=== PATIENT | female | born 1960 | race Two or more races ===

== ENCOUNTER 2021-12-13 17:56 | Emergency (ER) | payer MEDICAID, OTHER ==
[~2021-12-13] VITALS: Ht 154.9 cm; Wt 99.8 kg
[2021-12-13] MEDS ORDERED: HYDROcodone-ACET 10/325MG TAB PO ONE (19:30)
[2021-12-13] MEDS ORDERED: SULF400T11 PO (19:36)
[2021-12-13] MEDS ORDERED: HYDR-4798 PO (19:36)
[2021-12-13 20:25] VITALS: BP 114/60
== END 2021-12-13 20:53 | disposition home or self-care (01) ==
LOC: ER 17:56
DX: I83.11 Varicose veins of right lower extremity with inflammation (principal); I87.8 Other specified disorders of veins; S30.810A Abrasion of lower back and pelvis, initial encounter; Z88.1 Allergy status to other antibiotic agents; X58.XXXA Exposure to other specified factors, initial encounter; Y93.89 Activity, other specified; Y92.89 Other specified places as the place of occurrence of the external cause; Y99.8 Other external cause status
CPT/HCPCS: 93005

== ENCOUNTER 2022-11-26 14:51 | Inpatient (IN) | payer MEDICAID ==
[~2022-11-26] VITALS: Ht 157.5 cm; Wt 82.3 kg
[~2022-11-26 14:51] MED LIST: HYDR-4798 PO; SULF400T11 PO
[2022-11-26 15:39] LABS: Eosinophils # (auto) 0.1 10 ^3/uL (0-0.8)
[2022-11-26 15:41] LABS: Neutrophils # (auto) 4.6 10 ^3/uL (1.6-8.6); White Blood Cell 5.9 10^3/uL (4.4-10.8)
[2022-11-26 15:45] LABS: Basophils # (auto) 0 10 ^3/uL (0-0.2); Basophils % (auto) 0.8 % (0.0-2.0); Monocytes # (auto) 0.4 10 ^3/uL (0-1.3)
[2022-11-26 15:47] LABS: Lymphocytes # (auto) 0.9 10 ^3/uL (0.4-5.4); Lymphocytes % (auto) 14.8 % (10.0-50.0); Mean Corpuscular Hemoglobin 22.3 pg (28.0-32.0); Mean Corpuscular Hgb Conc. 31.6 g/dL (32.0-36.0); Mean Corpuscular Volume 70.8 fL (80.0-100.0); Monocytes % (auto) 6.1 % (0.0-12.0); Neutrophils % (auto) 77.3 % (37.0-80.0); Red Blood Cells 3.11 10^6/uL (4.0-5.20); Red Cell Distribution Width 19.4 % (11.8-14.3)
[2022-11-26 16:04] LABS: Albumin 2.7 g/dL (3.4-5.0); BUN/Creatinine Ratio 22.5 (10.0-20.0); Bilirubin, Total 0.2 mg/dL (0.2-1.0); Calcium 8.5 mg/dL (8.5-10.1); Magnesium 2.3 mg/dL (1.6-2.6); Total Protein 6.2 g/dL (6.4-8.2)
[2022-11-26] MEDS ORDERED: ACETAMINOPHEN 325 MG TAB PO PRN (18:30)
[2022-11-26] MEDS ORDERED: FUROSEMIDE 20 MG/2 ML VIAL IV ONE (18:30)
[2022-11-26] MEDS ORDERED: PANTOPRAZOLE 40 MG/10 ML VIAL INJ IV ONE (18:30)
[2022-11-26 18:56] LABS: % Iron Saturation 2.9 % (15-50)
[2022-11-26 19:00] LABS: INR 0.97 (0.9-1.15)
[2022-11-26 19:07] LABS: Folate (Folic Acid) 5.73 ng/mL (5.38-24)
[2022-11-26] MEDS: ASCORBIC ACID 500 MG TAB PO SCH (23:18)
[2022-11-27] VITALS (9 sets, daily range): BP systolic 95–111; BP diastolic 53–66
[2022-11-27 02:36] LABS: Urine Bacteria MANY /hpf (None Seen); Urine Blood 2+ /uL (Negative); Urine Mucus FEW (None Seen); Urine Specific Gravity 1.008 (1.001-1.035); Urine WBC 127 /hpf (0 - 5); Urine WBC Clumps PRESENT /hpf (None Seen)
[2022-11-27] MEDS: FUROSEMIDE 20 MG/2 ML VIAL IV SCH (10:00)
[2022-11-27] MEDS: ASCORBIC ACID 500 MG TAB PO SCH ×2 (10:37→22:02)
[2022-11-27] MEDS: PANTOPRAZOLE 40 MG/10 ML VIAL INJ IV SCH (10:37)
[2022-11-27] MEDS: MULTIPLE VITAMIN TAB PO SCH (10:38)
[2022-11-27] MEDS: ZINC SULFATE 220mg CAP or TAB PO SCH (10:38)
[2022-11-27 11:44] LABS: Eosinophils # (auto) 0.1 10 ^3/uL (0-0.8); Hemoglobin 7.8 g/dL (12.2-16.2); Lymphocytes # (auto) 0.8 10 ^3/uL (0.4-5.4); Monocytes # (auto) 0.3 10 ^3/uL (0-1.3); Red Cell Distribution Width 19.4 % (11.8-14.3); White Blood Cell 4.3 10^3/uL (4.4-10.8)
[2022-11-27 11:45] LABS: Basophils # (auto) 0 10 ^3/uL (0-0.2); Eosinophils % (auto) 2.9 % (0.0-7.0); Hematocrit 24.4 % (36.0-46.0); Lymphocytes % (auto) 17.9 % (10.0-50.0); Mean Corpuscular Hemoglobin 23.1 pg (28.0-32.0); Monocytes % (auto) 6.8 % (0.0-12.0); Neutrophils % (auto) 71.4 % (37.0-80.0); Red Blood Cells 3.38 10^6/uL (4.0-5.20)
[2022-11-27 11:56] LABS: Albumin 2.7 g/dL (3.4-5.0); Calcium 8.4 mg/dL (8.5-10.1); Potassium 3.6 mmol/L (3.5-5.1)
[2022-11-27 11:59] LABS: Bilirubin, Total 0.6 mg/dL (0.2-1.0)
[2022-11-27] MEDS ORDERED: diphenhdrAMINE HCL 25 MG CAP PO PRN (12:00)
[2022-11-27] MEDS: HYDROcodone-ACET 10/325MG TAB PO PRN (20:08)
[2022-11-27] MEDS ORDERED: HEPARIN DRIP/D5W 100UNITS/ML 250 ML IV SCH (22:00)
[2022-11-27] MEDS ORDERED: MORPHINE SULFATE INJ 2 MG/ml SYRG IV PRN ×2 (22:00)
[2022-11-27] MEDS ORDERED: NITROGLYCERIN 0.4 MG SL TAB SL PRN ×2 (22:00)
[2022-11-27] MEDS: TEMAZEPAM 15 MG CAP PO PRN (22:02)
[2022-11-27 22:38] LABS: Basophils # (auto) 0.1 10 ^3/uL (0-0.2); Basophils % (auto) 0.9 % (0.0-2.0); Eosinophils # (auto) 0.2 10 ^3/uL (0-0.8); Eosinophils % (auto) 3.3 % (0.0-7.0); Hematocrit 24.7 % (36.0-46.0); Hemoglobin 7.9 g/dL (12.2-16.2); Lymphocytes % (auto) 18.5 % (10.0-50.0); Mean Corpuscular Hemoglobin 22.8 pg (28.0-32.0); Mean Corpuscular Hgb Conc. 31.8 g/dL (32.0-36.0); Mean Corpuscular Volume 71.6 fL (80.0-100.0); Monocytes # (auto) 0.4 10 ^3/uL (0-1.3); Monocytes % (auto) 7.7 % (0.0-12.0); Neutrophils # (auto) 3.8 10 ^3/uL (1.6-8.6); Neutrophils % (auto) 69.6 % (37.0-80.0); Red Blood Cells 3.46 10^6/uL (4.0-5.20); Red Cell Distribution Width 19.4 % (11.8-14.3); White Blood Cell 5.5 10^3/uL (4.4-10.8)
[2022-11-27 22:53] LABS: INR 0.99 (0.9-1.15); Partial Thromboplastin Time 28.2 sec (24.6-33.4)
[2022-11-27] MEDS: SODIUM CHLOR 0.9% PF (SALINE LOCK) 10ML VIAL/SYR IV SCH (23:00)
[2022-11-28] VITALS (12 sets, daily range): BP systolic 92–116; BP diastolic 53–73
[2022-11-28] MEDS: SODIUM CHLOR 0.9% PF (SALINE LOCK) 10ML VIAL/SYR IV SCH ×3 (06:28→21:08)
[2022-11-28 07:30] LABS: Partial Thromboplastin Time 112.2 sec (24.6-33.4)
[2022-11-28] MEDS ORDERED: HEPARIN DRIP/D5W 100UNITS/ML 250 ML IV SCH ×2 (08:45→17:30)
[2022-11-28] MEDS: FUROSEMIDE 20 MG/2 ML VIAL IV SCH (10:00)
[2022-11-28] MEDS: PANTOPRAZOLE 40 MG/10 ML VIAL INJ IV SCH (12:39)
[2022-11-28] MEDS: MULTIPLE VITAMIN TAB PO SCH (12:39)
[2022-11-28] MEDS: ASCORBIC ACID 500 MG TAB PO SCH ×2 (12:39→21:45)
[2022-11-28] MEDS: ZINC SULFATE 220mg CAP or TAB PO SCH (12:39)
[2022-11-28] MEDS ORDERED: LIDOCAINE 2%HCL (LOCAL ANESTH.) INJ 20ML MDV ONE (14:56)
[2022-11-28] MEDS ORDERED: MIDAZOLAM HCL 2MG/2ML 2ml VIAL (1mg/ml) ONE ×2 (14:56→15:17)
[2022-11-28] MEDS ORDERED: fentaNYL CITRATE 100 MCG/2 ML VL ONE (15:14)
[2022-11-28] MEDS ORDERED: diphenhdrAMINE HCL 50 MG/1 ML VL ONE (15:20)
[2022-11-28 15:32] LABS: INR 0.98 (0.9-1.15); Partial Thromboplastin Time 28.7 sec (24.6-33.4)
[2022-11-28] MEDS ORDERED: HEPARIN SODIUM (PORCINE) 5000 UNITS/ML 1ML VIAL IV ONE ×2 (17:15)
[2022-11-28] MEDS ORDERED: SODIUM CHLORIDE 0.9% 1,000 ML IV ONE (18:30)
[2022-11-28] MEDS: ALBUMIN 25% 50 ML IV SCH ×2 (18:30→20:04)
[2022-11-28] MEDS: HYDROcodone-ACET 10/325MG TAB PO PRN (21:09)
[2022-11-28] MEDS: TEMAZEPAM 15 MG CAP PO PRN (21:46)
[2022-11-29 00:01] LABS: INR 1.04 (0.9-1.15)
[2022-11-29 00:05] LABS: Partial Thromboplastin Time > 139.0 sec (24.6-33.4)
[2022-11-29] MEDS ORDERED: HEPARIN DRIP/D5W 100UNITS/ML 250 ML IV SCH ×2 (01:12→09:15)
[2022-11-29 05:00] VITALS: BP 94/53
[2022-11-29] MEDS: SODIUM CHLOR 0.9% PF (SALINE LOCK) 10ML VIAL/SYR IV SCH ×2 (05:52→14:19)
[2022-11-29 07:16] LABS: Basophils # (auto) 0 10 ^3/uL (0-0.2); Eosinophils # (auto) 0.2 10 ^3/uL (0-0.8); Lymphocytes # (auto) 1.2 10 ^3/uL (0.4-5.4); Mean Corpuscular Hgb Conc. 33.6 g/dL (32.0-36.0); Monocytes # (auto) 0.3 10 ^3/uL (0-1.3); Neutrophils % (auto) 63.5 % (37.0-80.0); Nucleated Red Blood Cells % 0.1 %; Red Cell Distribution Width 19.9 % (11.8-14.3); White Blood Cell 4.8 10^3/uL (4.4-10.8)
[2022-11-29 07:18] LABS: Basophils % (auto) 0.5 % (0.0-2.0); Eosinophils % (auto) 4.2 % (0.0-7.0); Hematocrit 22.7 % (36.0-46.0); Hemoglobin 7.6 g/dL (12.2-16.2); Mean Corpuscular Hemoglobin 23.3 pg (28.0-32.0); Mean Corpuscular Volume 69.4 fL (80.0-100.0); Monocytes % (auto) 6.8 % (0.0-12.0); Neutrophils # (auto) 3.1 10 ^3/uL (1.6-8.6); Red Blood Cells 3.27 10^6/uL (4.0-5.20)
[2022-11-29 07:46] LABS: INR 1.02 (0.9-1.15)
[2022-11-29 07:54] LABS: Partial Thromboplastin Time 111.5 sec (24.6-33.4)
[2022-11-29 09:00] VITALS: BP 105/82
[2022-11-29] MEDS: ZINC SULFATE 220mg CAP or TAB PO SCH (11:36)
[2022-11-29] MEDS: MULTIPLE VITAMIN TAB PO SCH (11:36)
[2022-11-29] MEDS: PANTOPRAZOLE 40 MG/10 ML VIAL INJ IV SCH (11:36)
[2022-11-29] MEDS: FUROSEMIDE 20 MG/2 ML VIAL IV SCH (11:36)
[2022-11-29] MEDS: ASCORBIC ACID 500 MG TAB PO SCH ×2 (11:37→21:02)
[2022-11-29] MEDS ORDERED: IOHEXOL 350 MG/ML 100ML IJ ONE (12:12)
[2022-11-29 13:00] VITALS: BP 104/46
[2022-11-29 17:00] VITALS: BP 114/66
[2022-11-29 18:24] LABS: INR 1.01 (0.9-1.15); Partial Thromboplastin Time 47.6 sec (24.6-33.4)
[2022-11-29] MEDS ORDERED: SODIUM CHLORIDE 0.9% 2,000 ML IV ONE (18:30)
[2022-11-29] MEDS: HEPARIN DRIP/D5W 100UNITS/ML 250 ML IV SCH (19:30)
[2022-11-29 20:00] VITALS: BP 105/82
[2022-11-29] MEDS: TEMAZEPAM 15 MG CAP PO PRN (21:04)
[2022-11-29 21:56] VITALS: BP 99/58
[2022-11-30] MEDS: HEPARIN DRIP/D5W 100UNITS/ML 250 ML IV SCH (01:27)
[2022-11-30 02:49] LABS: INR 1.05 (0.9-1.15); Partial Thromboplastin Time 68.3 sec (24.6-33.4)
[2022-11-30] MEDS: SODIUM CHLOR 0.9% PF (SALINE LOCK) 10ML VIAL/SYR IV SCH ×4 (03:25→21:36)
[2022-11-30 04:43] VITALS: BP 90/55
[2022-11-30 09:00] VITALS: BP 92/54
[2022-11-30 09:22] LABS: INR 1.02 (0.9-1.15)
[2022-11-30] MEDS: PANTOPRAZOLE 40 MG/10 ML VIAL INJ IV SCH (10:00)
[2022-11-30] MEDS: FUROSEMIDE 20 MG/2 ML VIAL IV SCH (10:00)
[2022-11-30] MEDS: MULTIPLE VITAMIN TAB PO SCH (10:00)
[2022-11-30] MEDS: ASCORBIC ACID 500 MG TAB PO SCH ×2 (10:00→21:36)
[2022-11-30] MEDS: ZINC SULFATE 220mg CAP or TAB PO SCH (10:00)
[2022-11-30 10:43] LABS: Basophils # (auto) 0 10 ^3/uL (0-0.2); Eosinophils # (auto) 0.2 10 ^3/uL (0-0.8); Neutrophils # (auto) 2.9 10 ^3/uL (1.6-8.6); White Blood Cell 4.7 10^3/uL (4.4-10.8)
[2022-11-30 10:45] LABS: Basophils % (auto) 0.9 % (0.0-2.0); Eosinophils % (auto) 4.5 % (0.0-7.0); Hemoglobin 7.5 g/dL (12.2-16.2); Lymphocytes # (auto) 1.2 10 ^3/uL (0.4-5.4); Lymphocytes % (auto) 26.4 % (10.0-50.0); Mean Corpuscular Hemoglobin 22.8 pg (28.0-32.0); Mean Corpuscular Hgb Conc. 31.3 g/dL (32.0-36.0); Mean Corpuscular Volume 72.6 fL (80.0-100.0); Monocytes # (auto) 0.3 10 ^3/uL (0-1.3); Monocytes % (auto) 7.1 % (0.0-12.0); Neutrophils % (auto) 61.1 % (37.0-80.0); Nucleated Red Blood Cells % 0.2 %; Red Cell Distribution Width 19.9 % (11.8-14.3)
[2022-11-30] MEDS: HYDROcodone-ACET 10/325MG TAB PO PRN (12:11)
[2022-11-30 13:00] VITALS: BP 110/58
[2022-11-30] MEDS ORDERED: PROPOFOL 10 MG/ML 20 ML IV ONE (14:10)
[2022-11-30] MEDS ORDERED: LIDOCAINE 2% (LOCAL ANESTH.) PF 5ml SDV ONE (14:10)
[2022-11-30] MEDS ORDERED: HEPARIN DRIP/D5W 100UNITS/ML 250 ML IV SCH (16:30)
[2022-11-30] MEDS: diphenhdrAMINE HCL 25 MG CAP PO PRN ×2 (16:41→23:49)
[2022-11-30 17:00] VITALS: BP 106/69
[2022-11-30] MEDS: TEMAZEPAM 15 MG CAP PO PRN (21:37)
[2022-11-30 22:00] VITALS: BP 103/56
[2022-11-30 23:35] LABS: INR 1.02 (0.9-1.15); Partial Thromboplastin Time 50.9 sec (24.6-33.4)
[2022-12-01 05:00] VITALS: BP 95/53
[2022-12-01] MEDS: SODIUM CHLOR 0.9% PF (SALINE LOCK) 10ML VIAL/SYR IV SCH ×3 (06:48→21:31)
[2022-12-01 08:48] LABS: INR 1.04 (0.9-1.15); Partial Thromboplastin Time 43.7 sec (24.6-33.4)
[2022-12-01 09:00] VITALS: BP 99/56
[2022-12-01] MEDS ORDERED: HEPARIN DRIP/D5W 100UNITS/ML 250 ML IV SCH (10:00)
[2022-12-01] MEDS: ZINC SULFATE 220mg CAP or TAB PO SCH (11:04)
[2022-12-01] MEDS: POLYETHYLENE GLYCOL 17 GM PWDR PO SCH (11:04)
[2022-12-01] MEDS: PANTOPRAZOLE 40 MG/10 ML VIAL INJ IV SCH (11:04)
[2022-12-01] MEDS: ASCORBIC ACID 500 MG TAB PO SCH ×2 (11:05→21:31)
[2022-12-01] MEDS: MULTIPLE VITAMIN TAB PO SCH (11:05)
[2022-12-01] MEDS: FUROSEMIDE 20 MG/2 ML VIAL IV SCH (11:07)
[2022-12-01 13:00] VITALS: BP 92/60
[2022-12-01] MEDS: HYDROcodone-ACET 10/325MG TAB PO PRN (14:05)
[2022-12-01 16:06] LABS: Eosinophils # (auto) 0.1 10 ^3/uL (0-0.8); Monocytes # (auto) 0.3 10 ^3/uL (0-1.3); Red Cell Distribution Width 19.8 % (11.8-14.3); White Blood Cell 7.3 10^3/uL (4.4-10.8)
[2022-12-01 16:08] LABS: Basophils # (auto) 0 10 ^3/uL (0-0.2); Basophils % (auto) 0.6 % (0.0-2.0); Eosinophils % (auto) 1.7 % (0.0-7.0); Hematocrit 25.6 % (36.0-46.0); Hemoglobin 8.3 g/dL (12.2-16.2); Lymphocytes # (auto) 1.1 10 ^3/uL (0.4-5.4); Mean Corpuscular Hemoglobin 22.8 pg (28.0-32.0); Mean Corpuscular Hgb Conc. 32.6 g/dL (32.0-36.0); Mean Corpuscular Volume 69.8 fL (80.0-100.0); Monocytes % (auto) 3.7 % (0.0-12.0); Neutrophils # (auto) 5.7 10 ^3/uL (1.6-8.6); Red Blood Cells 3.67 10^6/uL (4.0-5.20)
[2022-12-01 16:53] LABS: INR 1.03 (0.9-1.15); Partial Thromboplastin Time 61.7 sec (24.6-33.4)
[2022-12-01 17:00] VITALS: BP 97/60
[2022-12-01] MEDS: diphenhdrAMINE HCL 25 MG CAP PO PRN (18:34)
[2022-12-01] MEDS: TEMAZEPAM 15 MG CAP PO PRN (21:31)
[2022-12-01 22:00] VITALS: BP 100/66
[2022-12-01 23:42] LABS: INR 1.02 (0.9-1.15)
[2022-12-01 23:44] LABS: Partial Thromboplastin Time 93.4 sec (24.6-33.4)
[2022-12-02] VITALS (7 sets, daily range): BP systolic 93–105; BP diastolic 50–65
[2022-12-02] MEDS ORDERED: HEPARIN DRIP/D5W 100UNITS/ML 250 ML IV SCH (01:00)
[2022-12-02] MEDS: SODIUM CHLOR 0.9% PF (SALINE LOCK) 10ML VIAL/SYR IV SCH ×3 (05:15→22:01)
[2022-12-02] MEDS: diphenhdrAMINE HCL 25 MG CAP PO PRN ×2 (05:38→21:21)
[2022-12-02] MEDS: FUROSEMIDE 20 MG/2 ML VIAL IV SCH (10:00)
[2022-12-02] MEDS: POLYETHYLENE GLYCOL 17 GM PWDR PO SCH (10:00)
[2022-12-02 10:36] LABS: INR 1.02 (0.9-1.15); Partial Thromboplastin Time 56.5 sec (24.6-33.4)
[2022-12-02] MEDS: MULTIPLE VITAMIN TAB PO SCH (13:30)
[2022-12-02] MEDS: PANTOPRAZOLE 40 MG/10 ML VIAL INJ IV SCH (13:30)
[2022-12-02] MEDS: ZINC SULFATE 220mg CAP or TAB PO SCH (13:30)
[2022-12-02] MEDS: ASCORBIC ACID 500 MG TAB PO SCH ×2 (13:30→21:56)
[2022-12-02] MEDS: HYDROcodone-ACET 10/325MG TAB PO PRN ×2 (13:45→22:59)
[2022-12-02 17:15] LABS: Basophils # (auto) 0 10 ^3/uL (0-0.2); Eosinophils # (auto) 0.1 10 ^3/uL (0-0.8); Hemoglobin 7.6 g/dL (12.2-16.2); Mean Corpuscular Hemoglobin 22.5 pg (28.0-32.0); Monocytes # (auto) 0.3 10 ^3/uL (0-1.3)
[2022-12-02 17:16] LABS: Basophils % (auto) 0.9 % (0.0-2.0); Eosinophils % (auto) 2.6 % (0.0-7.0); Hematocrit 23.9 % (36.0-46.0); Lymphocytes # (auto) 0.9 10 ^3/uL (0.4-5.4); Lymphocytes % (auto) 17.4 % (10.0-50.0); Mean Corpuscular Hgb Conc. 31.8 g/dL (32.0-36.0); Mean Corpuscular Volume 70.9 fL (80.0-100.0); Monocytes % (auto) 5.5 % (0.0-12.0); Neutrophils % (auto) 73.6 % (37.0-80.0); Red Blood Cells 3.37 10^6/uL (4.0-5.20); Red Cell Distribution Width 19.5 % (11.8-14.3); White Blood Cell 5.4 10^3/uL (4.4-10.8)
[2022-12-02 17:32] LABS: INR 1.01 (0.9-1.15); Partial Thromboplastin Time 27.5 sec (24.6-33.4)
[2022-12-02] MEDS: APIXABAN 5 MG TAB PO SCH (21:55)
[2022-12-02] MEDS: TEMAZEPAM 15 MG CAP PO PRN (21:56)
[2022-12-03 05:00] VITALS: BP 105/60
[2022-12-03] MEDS: SODIUM CHLOR 0.9% PF (SALINE LOCK) 10ML VIAL/SYR IV SCH ×2 (06:36→14:00)
[2022-12-03 08:00] VITALS: BP 99/50
[2022-12-03 09:00] VITALS: BP 99/60
[2022-12-03] MEDS: POLYETHYLENE GLYCOL 17 GM PWDR PO SCH (10:00)
[2022-12-03] MEDS: MULTIPLE VITAMIN TAB PO SCH (10:00)
[2022-12-03] MEDS: ZINC SULFATE 220mg CAP or TAB PO SCH (10:00)
[2022-12-03] MEDS: FUROSEMIDE 20 MG/2 ML VIAL IV SCH (10:00)
[2022-12-03] MEDS: ASCORBIC ACID 500 MG TAB PO SCH (10:00)
[2022-12-03] MEDS: PANTOPRAZOLE 40 MG/10 ML VIAL INJ IV SCH (10:21)
[2022-12-03] MEDS: APIXABAN 5 MG TAB PO SCH (10:22)
[2022-12-03] MEDS ORDERED: APIX5TAB PO (10:57)
[2022-12-03] MEDS ORDERED: ASCO500T11 PO (10:57)
[2022-12-03] MEDS ORDERED: PANT40TA2 PO (11:38)
[2022-12-03 13:00] VITALS: BP 96/60
[2022-12-03] MEDS: HYDROcodone-ACET 10/325MG TAB PO PRN (14:42)
[2022-12-03 16:06] VITALS: BP 99/50
[2022-12-03 17:00] VITALS: BP 103/63
[2022-12-04] MEDS ORDERED: FERR-7 PO (06:41)
[2022-12-04] MEDS ORDERED: LEVO500T31 PO (06:41)
== END 2022-12-03 19:05 | disposition home health service (06) | DRG 197 ==
LOC: EDBD 14:51 → ER 14:51 → OVERFLOW 18:27 → WEST WING 11-27 06:05 → TELE-WESTW 11-28 02:16
PROVIDERS: ADMIT Nurse Practitioner Family; ATTEND Internal Medicine
PROC: 30233N1 Transfusion of Nonautologous Red Blood Cells into Peripheral Vein, Percutaneous Approach (ICD-10-PCS; 2022-11-27)
PROC: 06H03DZ Insertion of Intraluminal Device into Inferior Vena Cava, Percutaneous Approach (ICD-10-PCS; 2022-11-29)
PROC: B5191ZA Fluoroscopy of Inferior Vena Cava using Low Osmolar Contrast, Guidance (ICD-10-PCS; 2022-11-29)
PROC: B549ZZA Ultrasonography of Inferior Vena Cava, Guidance (ICD-10-PCS; 2022-11-29)
PROC: 0DB78ZX Excision of Stomach, Pylorus, Via Natural or Artificial Opening Endoscopic, Diagnostic (ICD-10-PCS; 2022-11-30)
PROC: 0DB98ZX Excision of Duodenum, Via Natural or Artificial Opening Endoscopic, Diagnostic (ICD-10-PCS; principal; 2022-11-30 14:39)
DX: I82.403 Acute embolism and thrombosis of unspecified deep veins of lower extremity, bilateral (principal); L89.109 Pressure ulcer of unspecified part of back, unspecified stage; E44.0 Moderate protein-calorie malnutrition; D63.8 Anemia in other chronic diseases classified elsewhere; K29.70 Gastritis, unspecified, without bleeding; K44.9 Diaphragmatic hernia without obstruction or gangrene; K20.90 Esophagitis, unspecified without bleeding; L89.90 Pressure ulcer of unspecified site, unspecified stage; I87.2 Venous insufficiency (chronic) (peripheral); E66.01 Morbid (severe) obesity due to excess calories; I87.8 Other specified disorders of veins; D50.9 Iron deficiency anemia, unspecified; I25.10 Atherosclerotic heart disease of native coronary artery without angina pectoris; Z20.822 Contact with and (suspected) exposure to COVID-19; B95.62 Methicillin resistant Staphylococcus aureus infection as the cause of diseases classified elsewhere; B96.89 Other specified bacterial agents as the cause of diseases classified elsewhere; B96.20 Unspecified Escherichia coli [E. coli] as the cause of diseases classified elsewhere; M13.88 Other specified arthritis, other site; Z80.9 Family history of malignant neoplasm, unspecified; Z74.01 Bed confinement status; Z86.16 Personal history of COVID-19; Z88.1 Allergy status to other antibiotic agents; Z90.710 Acquired absence of both cervix and uterus; Z95.828 Presence of other vascular implants and grafts; Z68.33 Body mass index [BMI] 33.0-33.9, adult; Z88.5 Allergy status to narcotic agent; Z79.899 Other long term (current) drug therapy
CPT/HCPCS: 36415; 37191; 37619; 43239; 71045; 71275; 80053; 81001; 82607; 82728; 82746; 83540; 83550; 83735; 83880; 85025; 85610; 85730; 86850; 86900; 86901; 86920; 87077; 87186; 87205; 87426; 93005; 93306; 93970; 94640; 97110; 97163; 97530; 99152; 99153; C1894; C9113; G0378; J2001; J2250; J2704

== ENCOUNTER 2023-03-01 15:28 | Inpatient (IN) | payer MEDICAID ==
[~2023-03-01] VITALS: Ht 157.5 cm; Wt 81.6 kg
[~2023-03-01 15:28] MED LIST changes: +APIX5TAB PO; +ASCO500T11 PO; +FERR-7 PO; +LEVO500T31 PO; +PANT40TA2 PO; -SULF400T11 PO
[2023-03-01 17:52] LABS: Eosinophils # (auto) 0.1 10 ^3/uL (0-0.8); Hemoglobin 7.4 g/dL (12.2-16.2); Monocytes # (auto) 0.3 10 ^3/uL (0-1.3)
[2023-03-01 17:55] LABS: Basophils # (auto) 0 10 ^3/uL (0-0.2); Basophils % (auto) 0.7 % (0.0-2.0); Eosinophils % (auto) 1.5 % (0.0-7.0); Hematocrit 23.8 % (36.0-46.0); Lymphocytes # (auto) 0.9 10 ^3/uL (0.4-5.4); Lymphocytes % (auto) 17.2 % (10.0-50.0); Mean Corpuscular Hemoglobin 21.1 pg (28.0-32.0); Mean Corpuscular Hgb Conc. 31.2 g/dL (32.0-36.0); Mean Corpuscular Volume 67.6 fL (80.0-100.0); Monocytes % (auto) 5.8 % (0.0-12.0); Neutrophils # (auto) 3.7 10 ^3/uL (1.6-8.6); Neutrophils % (auto) 74.8 % (37.0-80.0); Red Blood Cells 3.52 10^6/uL (4.0-5.20); Red Cell Distribution Width 19.1 % (11.8-14.3)
[2023-03-01 18:00] LABS: Potassium 4.2 mmol/L (3.5-5.1)
[2023-03-01 18:07] LABS: Albumin 2.9 g/dL (3.4-5.0); BUN/Creatinine Ratio 36.4 (10.0-20.0); Bilirubin, Total 0.2 mg/dL (0.2-1.0); Calcium 8.2 mg/dL (8.5-10.1); Total Protein 6.2 g/dL (6.4-8.2)
[2023-03-01 18:11] LABS: INR 0.99 (0.9-1.15); Partial Thromboplastin Time 28.3 SEC (24.5-34.5)
[2023-03-01] MEDS ORDERED: ENOXAPARIN SOD 120 MG/0.8 ML SYRINGE SC ONE (20:15)
[2023-03-01] MEDS ORDERED: IOHEXOL 350 MG/ML 100ML IJ ONE (20:16)
[2023-03-01] MEDS ORDERED: ONDANSETRON HCL 4 MG/2 ML VIAL IV ONE (20:35)
[2023-03-01] MEDS ORDERED: ACETAMINOPHEN 325 MG TAB PO PRN (21:45)
[2023-03-01] MEDS ORDERED: DOCUSATE SOD 100 MG CAP PO PRN (21:45)
[2023-03-01] MEDS ORDERED: ALBUMIN 25% 100 ML IV ONE (21:45)
[2023-03-01] MEDS ORDERED: ONDANSETRON HCL 4 MG/2 ML VIAL IV PRN (21:45)
[2023-03-01] MEDS ORDERED: HYDROmorphone HCL 2 MG/ML VL/or syr IV PRN (21:45)
[2023-03-01] MEDS: FAMOTIDINE (10MG/ML) 2ML VL IV SCH (23:36)
[2023-03-01] MEDS: SODIUM CHLOR 0.9% PF (SALINE LOCK) 10ML VIAL/SYR IV SCH (23:37)
[2023-03-02] MEDS ORDERED: NITROGLYCERIN 0.4 MG SL TAB SL PRN
[2023-03-02] MEDS ORDERED: MORPHINE SULFATE INJ 2 MG/ml SYRG IV PRN
[2023-03-02] MEDS ORDERED: SODIUM CHLORIDE 0.9% 500 ML IV ONE (05:30)
[2023-03-02] MEDS ORDERED: HYDROcodone-ACET 5/325MG TAB PO PRN (05:30)
[2023-03-02] MEDS: SODIUM CHLOR 0.9% PF (SALINE LOCK) 10ML VIAL/SYR IV SCH ×3 (05:32→21:25)
[2023-03-02 06:07] LABS: Basophils # (auto) 0 10 ^3/uL (0-0.2); Basophils % (auto) 0.7 % (0.0-2.0); Eosinophils # (auto) 0 10 ^3/uL (0-0.8); Eosinophils % (auto) 0.8 % (0.0-7.0); Hematocrit 23.6 % (36.0-46.0); Lymphocytes # (auto) 0.8 10 ^3/uL (0.4-5.4); Lymphocytes % (auto) 16.7 % (10.0-50.0); Mean Corpuscular Hemoglobin 20.7 pg (28.0-32.0); Mean Corpuscular Hgb Conc. 28.8 g/dL (32.0-36.0); Mean Corpuscular Volume 72.1 fL (80.0-100.0); Monocytes # (auto) 0.3 10 ^3/uL (0-1.3); Monocytes % (auto) 6.2 % (0.0-12.0); Neutrophils # (auto) 3.4 10 ^3/uL (1.6-8.6); Neutrophils % (auto) 75.6 % (37.0-80.0); Red Blood Cells 3.27 10^6/uL (4.0-5.20); Red Cell Distribution Width 18.9 % (11.8-14.3); White Blood Cell 4.5 10^3/uL (4.4-10.8)
[2023-03-02 06:11] LABS: Potassium 4.4 mmol/L (3.5-5.1)
[2023-03-02 06:21] LABS: BUN/Creatinine Ratio 26.9 (10.0-20.0); Bilirubin, Total 0.3 mg/dL (0.2-1.0); Calcium 7.9 mg/dL (8.5-10.1); Total Protein 5.7 g/dL (6.4-8.2)
[2023-03-02 06:23] LABS: Hemoglobin 6.8 g/dL (12.2-16.2)
[2023-03-02] MEDS ORDERED: HYDROmorphone HCL 2 MG/ML VL/or syr IV PRN (06:30)
[2023-03-02 09:16] VITALS: BP 94/56
[2023-03-02 09:33] VITALS: BP 95/52
[2023-03-02 11:17] VITALS: BP 95/55
[2023-03-02] MEDS: FAMOTIDINE (10MG/ML) 2ML VL IV SCH ×2 (11:19→21:20)
[2023-03-02] MEDS: HYDROcodone-ACET 5/325MG TAB PO PRN (15:35)
[2023-03-02 17:12] VITALS: BP 111/61
[2023-03-02] MEDS: ENOXAPARIN SOD 120 MG/0.8 ML SYRINGE SC SCH (21:25)
[2023-03-02 22:00] VITALS: BP 88/53
[2023-03-03 05:00] VITALS: BP 98/53
[2023-03-03 05:51] LABS: Albumin 2.7 g/dL (3.4-5.0); BUN/Creatinine Ratio 23.7 (10.0-20.0); Calcium 8.3 mg/dL (8.5-10.1); Potassium 3.8 mmol/L (3.5-5.1)
[2023-03-03 05:54] LABS: Bilirubin, Total 0.3 mg/dL (0.2-1.0)
[2023-03-03 06:27] LABS: Basophils # (auto) 0 10 ^3/uL (0-0.2); Eosinophils # (auto) 0.1 10 ^3/uL (0-0.8); Hemoglobin 7.9 g/dL (12.2-16.2); Lymphocytes # (auto) 1.1 10 ^3/uL (0.4-5.4); Lymphocytes % (auto) 29.9 % (10.0-50.0); Monocytes # (auto) 0.3 10 ^3/uL (0-1.3); Neutrophils # (auto) 2.2 10 ^3/uL (1.6-8.6); White Blood Cell 3.8 10^3/uL (4.4-10.8)
[2023-03-03 06:29] LABS: Basophils % (auto) 0.6 % (0.0-2.0); Eosinophils % (auto) 3.1 % (0.0-7.0); Hematocrit 24.6 % (36.0-46.0); Mean Corpuscular Hgb Conc. 31.9 g/dL (32.0-36.0); Monocytes % (auto) 7.9 % (0.0-12.0); Neutrophils % (auto) 58.5 % (37.0-80.0); Red Blood Cells 3.57 10^6/uL (4.0-5.20)
[2023-03-03 06:32] LABS: Red Cell Distribution Width 20.4 % (11.8-14.3)
[2023-03-03] MEDS: SODIUM CHLOR 0.9% PF (SALINE LOCK) 10ML VIAL/SYR IV SCH ×3 (06:57→22:20)
[2023-03-03 09:00] VITALS: BP 104/65
[2023-03-03] MEDS: FAMOTIDINE (10MG/ML) 2ML VL IV SCH ×2 (09:07→22:20)
[2023-03-03 13:00] VITALS: BP 121/66
[2023-03-03] MEDS: HYDROcodone-ACET 5/325MG TAB PO PRN (16:34)
[2023-03-03 17:00] VITALS: BP 104/65
[2023-03-03 20:00] VITALS: BP 108/58
[2023-03-03] MEDS: ENOXAPARIN SOD 120 MG/0.8 ML SYRINGE SC SCH (20:56)
[2023-03-03 22:00] VITALS: BP 108/58
[2023-03-04 05:00] VITALS: BP 90/49
[2023-03-04 06:35] LABS: Basophils # (auto) 0 10 ^3/uL (0-0.2); Eosinophils # (auto) 0.1 10 ^3/uL (0-0.8); Eosinophils % (auto) 2.4 % (0.0-7.0); Lymphocytes # (auto) 1.2 10 ^3/uL (0.4-5.4); Monocytes # (auto) 0.4 10 ^3/uL (0-1.3)
[2023-03-04 06:38] LABS: Hematocrit 25.6 % (36.0-46.0); Lymphocytes % (auto) 25.7 % (10.0-50.0); Mean Corpuscular Hemoglobin 21.7 pg (28.0-32.0); Mean Corpuscular Hgb Conc. 31.2 g/dL (32.0-36.0); Mean Corpuscular Volume 69.6 fL (80.0-100.0); Monocytes % (auto) 7.9 % (0.0-12.0); Neutrophils # (auto) 2.8 10 ^3/uL (1.6-8.6); Nucleated Red Blood Cells % 0.1 %; Red Blood Cells 3.69 10^6/uL (4.0-5.20); White Blood Cell 4.5 10^3/uL (4.4-10.8)
[2023-03-04 06:59] LABS: Red Cell Distribution Width 20.6 % (11.8-14.3)
[2023-03-04 07:10] LABS: Thyroid Stimulating Hormone 3.04 uIU/mL (0.358-3.74)
[2023-03-04] MEDS: SODIUM CHLOR 0.9% PF (SALINE LOCK) 10ML VIAL/SYR IV SCH ×3 (07:13→21:32)
[2023-03-04 09:00] VITALS: BP 104/53
[2023-03-04] MEDS: FAMOTIDINE (10MG/ML) 2ML VL IV SCH ×2 (10:00→21:32)
[2023-03-04] MEDS: HYDROcodone-ACET 5/325MG TAB PO PRN ×2 (12:55→21:32)
[2023-03-04 13:00] VITALS: BP 97/56
[2023-03-04 16:39] VITALS: BP 90/43
[2023-03-04] MEDS: ENOXAPARIN SOD 120 MG/0.8 ML SYRINGE SC SCH (21:32)
[2023-03-04 22:00] VITALS: BP 113/65
[2023-03-04 22:05] VITALS: BP 113/65
[2023-03-05 05:05] VITALS: BP 98/54
[2023-03-05] MEDS: SODIUM CHLOR 0.9% PF (SALINE LOCK) 10ML VIAL/SYR IV SCH ×2 (06:52→13:23)
[2023-03-05 09:00] VITALS: BP 92/49
[2023-03-05] MEDS: FAMOTIDINE (10MG/ML) 2ML VL IV SCH ×2 (09:14→21:34)
[2023-03-05] MEDS ORDERED: APIXABAN 5 MG TAB PO SCH (10:00)
[2023-03-05 13:00] VITALS: BP 97/61
[2023-03-05] MEDS: APIXABAN 2.5 MG TAB PO SCH ×2 (13:23→21:35)
[2023-03-05] MEDS: HYDROcodone-ACET 5/325MG TAB PO PRN ×2 (13:23→21:34)
[2023-03-05 17:00] VITALS: BP 94/54
[2023-03-05 22:00] VITALS: BP 92/52
[2023-03-06] MEDS ORDERED: SODIUM FERR GLUC 62.5MG/5ML 125 MG in SODIUM CHL 0.9% 100 ML IV ONE (00:30)
[2023-03-06] MEDS: SODIUM CHLOR 0.9% PF (SALINE LOCK) 10ML VIAL/SYR IV SCH ×4 (04:03→21:17)
[2023-03-06 05:00] VITALS: BP 86/56
[2023-03-06] MEDS: HYDROcodone-ACET 5/325MG TAB PO PRN ×3 (07:08→21:17)
[2023-03-06 08:30] VITALS: BP 95/45
[2023-03-06] MEDS: PANTOPRAZOLE 40 MG TAB PO SCH (14:00)
[2023-03-06] MEDS: APIXABAN 5 MG TAB PO SCH ×2 (14:00→21:17)
[2023-03-06 15:32] LABS: Albumin 2.8 g/dL (3.4-5.0); Calcium 8.4 mg/dL (8.5-10.1); Potassium 3.8 mmol/L (3.5-5.1)
[2023-03-06 15:35] LABS: BUN/Creatinine Ratio 18.1 (10.0-20.0)
[2023-03-06 15:37] LABS: Bilirubin, Total 0.2 mg/dL (0.2-1.0); Total Protein 6.4 g/dL (6.4-8.2)
[2023-03-06 16:41] LABS: Basophils # (auto) 0 10 ^3/uL (0-0.2); Basophils % (auto) 0.6 % (0.0-2.0); Eosinophils # (auto) 0.1 10 ^3/uL (0-0.8); Eosinophils % (auto) 1.4 % (0.0-7.0); Hematocrit 27.5 % (36.0-46.0); Hemoglobin 8.6 g/dL (12.2-16.2); Lymphocytes # (auto) 0.8 10 ^3/uL (0.4-5.4); Lymphocytes % (auto) 18.1 % (10.0-50.0); Mean Corpuscular Hemoglobin 21.9 pg (28.0-32.0); Mean Corpuscular Hgb Conc. 31.2 g/dL (32.0-36.0); Monocytes # (auto) 0.3 10 ^3/uL (0-1.3); Monocytes % (auto) 6.3 % (0.0-12.0); Neutrophils # (auto) 3.4 10 ^3/uL (1.6-8.6); Neutrophils % (auto) 73.6 % (37.0-80.0); Red Blood Cells 3.92 10^6/uL (4.0-5.20); White Blood Cell 4.6 10^3/uL (4.4-10.8)
[2023-03-06 16:42] LABS: Red Cell Distribution Width 20.7 % (11.8-14.3)
[2023-03-06 22:00] VITALS: BP 101/57
[2023-03-07 05:00] VITALS: BP 103/62
[2023-03-07] MEDS: SODIUM CHLOR 0.9% PF (SALINE LOCK) 10ML VIAL/SYR IV SCH ×3 (06:48→21:04)
[2023-03-07] MEDS: PANTOPRAZOLE 40 MG TAB PO SCH (08:23)
[2023-03-07] MEDS: APIXABAN 5 MG TAB PO SCH ×2 (08:24→21:04)
[2023-03-07 09:00] VITALS: BP 101/62
[2023-03-07 12:50] VITALS: BP 104/55
[2023-03-07] MEDS: HYDROcodone-ACET 5/325MG TAB PO PRN ×2 (14:31→20:45)
[2023-03-07 17:02] VITALS: BP 108/55
[2023-03-07 22:00] VITALS: BP 90/51
[2023-03-07 23:36] VITALS: BP 98/47
[2023-03-08 05:00] VITALS: BP 86/59
[2023-03-08] MEDS: SODIUM CHLOR 0.9% PF (SALINE LOCK) 10ML VIAL/SYR IV SCH (05:33)
[2023-03-08 06:52] VITALS: BP 98/61
[2023-03-08 09:00] VITALS: BP 98/62
[2023-03-08] MEDS: PANTOPRAZOLE 40 MG TAB PO SCH (10:27)
[2023-03-08] MEDS: APIXABAN 5 MG TAB PO SCH (10:27)
== END 2023-03-08 13:30 | DRG 197 ==
LOC: EDBD 15:28 → ER 15:28 → TELE 23:56 → TELE-CENTR 03-02 14:37
PROVIDERS: ADMIT Nurse Practitioner Family; ATTEND Family Medicine
PROC: 30233N1 Transfusion of Nonautologous Red Blood Cells into Peripheral Vein, Percutaneous Approach (ICD-10-PCS; principal; 2023-03-02)
DX: I82.432 Acute embolism and thrombosis of left popliteal vein (principal); E43 Unspecified severe protein-calorie malnutrition; L89.152 Pressure ulcer of sacral region, stage 2; D63.8 Anemia in other chronic diseases classified elsewhere; E88.09 Other disorders of plasma-protein metabolism, not elsewhere classified; I82.442 Acute embolism and thrombosis of left tibial vein; K29.70 Gastritis, unspecified, without bleeding; M17.0 Bilateral primary osteoarthritis of knee; I25.10 Atherosclerotic heart disease of native coronary artery without angina pectoris; E66.01 Morbid (severe) obesity due to excess calories; I87.2 Venous insufficiency (chronic) (peripheral); Z20.822 Contact with and (suspected) exposure to COVID-19; I82.503 Chronic embolism and thrombosis of unspecified deep veins of lower extremity, bilateral; Z96.653 Presence of artificial knee joint, bilateral; Z90.710 Acquired absence of both cervix and uterus; Z88.1 Allergy status to other antibiotic agents; Z74.01 Bed confinement status; Z88.5 Allergy status to narcotic agent; Z88.8 Allergy status to other drugs, medicaments and biological substances; Z80.51 Family history of malignant neoplasm of kidney; Z95.828 Presence of other vascular implants and grafts; Z90.49 Acquired absence of other specified parts of digestive tract; Z68.31 Body mass index [BMI] 31.0-31.9, adult
CPT/HCPCS: 36415; 71045; 71275; 73700; 74176; 80053; 82270; 82378; 83615; 84155; 84165; 84436; 84443; 84484; 85025; 85045; 85379; 85610; 85730; 86850; 86900; 86901; 86920; 87426; 93005; 93970; 96361; 96365; 96372; 96375; 97110; 97116; 97163; 97530; G0378; J2405; J3490; P9047

== ENCOUNTER 2023-07-16 11:06 | Inpatient (IN) | payer MEDICAID ==
[~2023-07-16] VITALS: Ht 157.5 cm; Wt 80.7 kg
[2023-07-16] MEDS ORDERED: SODIUM CHLORIDE 0.9% 1,000 ML IV ONE (11:30)
[2023-07-16 11:50] VITALS: PULSE 78; RESP 16; O2SAT 97
[2023-07-16 12:10] LABS: Eosinophils # (auto) 0.2 10 ^3/uL (0-0.8); Monocytes # (auto) 0.2 10 ^3/uL (0-1.3); Nucleated Red Blood Cells % 0.1 %; Red Cell Distribution Width 17.7 % (11.8-14.3)
[2023-07-16 12:11] LABS: Basophils # (auto) 0.1 10 ^3/uL (0-0.2); Basophils % (auto) 1.3 % (0.0-2.0); Eosinophils % (auto) 4.8 % (0.0-7.0); Hematocrit 28.4 % (36.0-46.0); Lymphocytes % (auto) 21.5 % (10.0-50.0); Mean Corpuscular Hemoglobin 22.9 pg (28.0-32.0); Mean Corpuscular Hgb Conc. 31.7 g/dL (32.0-36.0); Mean Corpuscular Volume 72.3 fL (80.0-100.0); Monocytes % (auto) 5.1 % (0.0-12.0); Neutrophils # (auto) 3.2 10 ^3/uL (1.6-8.6); Neutrophils % (auto) 67.3 % (37.0-80.0); Red Blood Cells 3.92 10^6/uL (4.0-5.20); White Blood Cell 4.8 10^3/uL (4.4-10.8)
[2023-07-16] MEDS ORDERED: HYDROcodone-ACET 5/325MG TAB PO ONE (14:45)
[2023-07-16] MEDS ORDERED: hydrOXYzine 25 MG TAB or CAP PO ONE (14:45)
[2023-07-16 15:20] LABS: Chloride 107 mmol/L (98-107); Sodium 136 mmol/L (136-145)
[2023-07-16 15:23] LABS: Anion Gap 5 (5-15); Calcium 8.6 mg/dL (8.7-10.4); Carbon Dioxide 24 mmol/L (20-30)
[2023-07-16 15:28] LABS: Alkaline Phosphatase 75 U/L (46-116); Glucose 83 mg/dL (74-106)
[2023-07-16 15:30] LABS: Albumin 3.6 g/dL (3.2-4.8); Aspartate Aminotransferase 15 U/L (13-40); Bilirubin, Total 0.3 mg/dL (0.2-1.0); Total Protein 6.4 g/dL (5.7-8.2)
[2023-07-16 15:44] LABS: BUN/Creatinine Ratio 21.1 (10.0-20.0); Blood Urea Nitrogen 15 mg/dL (9-23); Potassium 4.3 mmol/L (3.5-5.1)
[2023-07-16 15:46] LABS: Alanine Aminotransferase < 9 U/L (7-40)
[2023-07-16] MEDS ORDERED: MORPHINE SULFATE INJ 2 MG/ml SYRG IV PRN (17:15)
[2023-07-16] MEDS ORDERED: DOCUSATE SOD 100 MG CAP PO PRN (17:15)
[2023-07-16] MEDS ORDERED: ACETAMINOPHEN 325 MG TAB PO PRN (17:15)
[2023-07-16] MEDS ORDERED: NITROGLYCERIN 0.4 MG SL TAB SL PRN (17:15)
[2023-07-16] MEDS ORDERED: ONDANSETRON HCL 4 MG/2 ML VIAL IV PRN (17:15)
[2023-07-16] MEDS: SODIUM CHLORIDE 0.9% 1,000 ML IV SCH (17:19)
[2023-07-16 21:15] VITALS: PULSE 90; RESP 14; O2SAT 98
[2023-07-16 23:03] VITALS: PULSE 74; RESP 16; O2SAT 96
[2023-07-16 23:23] VITALS: BP 99/61; PULSE 74; RESP 14; TEMP 98; O2SAT 96
[2023-07-17] MEDS: HYDROcodone-ACET 5/325MG TAB PO PRN ×3 (00:24→18:13)
[2023-07-17] MEDS: SODIUM CHLORIDE 0.9% 1,000 ML IV SCH ×3 (01:13→18:05)
[2023-07-17] MEDS: TEMAZEPAM 15 MG CAP PO PRN (01:21)
[2023-07-17 05:00] VITALS: BP 89/49; PULSE 98; RESP 17; TEMP 97.4; O2SAT 96
[2023-07-17 08:00] VITALS: BP 89/56; PULSE 60; RESP 16; TEMP 98.5; O2SAT 97
[2023-07-17 09:00] VITALS: BP 89/56; PULSE 60; RESP 16; TEMP 98.5; O2SAT 97
[2023-07-17] MEDS ORDERED: ENOXAPARIN SOD 40 MG/0.4 ML SYRINGE SC SCH (10:00)
[2023-07-17] MEDS: PANTOPRAZOLE 40 MG TAB PO SCH (10:30)
[2023-07-17 11:17] LABS: Basophils # (auto) 0 10 ^3/uL (0-0.2); Eosinophils # (auto) 0.2 10 ^3/uL (0-0.8); Lymphocytes # (auto) 1.1 10 ^3/uL (0.4-5.4); Monocytes # (auto) 0.3 10 ^3/uL (0-1.3); Nucleated Red Blood Cells % 0.2 %; Red Blood Cells 3.68 10^6/uL (4.0-5.20); White Blood Cell 4.5 10^3/uL (4.4-10.8)
[2023-07-17 11:19] LABS: Basophils % (auto) 0.9 % (0.0-2.0); Eosinophils % (auto) 4.3 % (0.0-7.0); Hematocrit 27.3 % (36.0-46.0); Hemoglobin 8.5 g/dL (12.2-16.2); Lymphocytes % (auto) 24.9 % (10.0-50.0); Mean Corpuscular Hemoglobin 23.2 pg (28.0-32.0); Mean Corpuscular Hgb Conc. 31.4 g/dL (32.0-36.0); Mean Corpuscular Volume 74.1 fL (80.0-100.0); Monocytes % (auto) 6.9 % (0.0-12.0); Neutrophils # (auto) 2.8 10 ^3/uL (1.6-8.6)
[2023-07-17 11:22] LABS: Albumin 3.3 g/dL (3.2-4.8); Alkaline Phosphatase 65 U/L (46-116); Anion Gap 6 (5-15); Aspartate Aminotransferase 13 U/L (13-40); BUN/Creatinine Ratio 16.7 (10.0-20.0); Blood Urea Nitrogen 11 mg/dL (9-23); Calcium 8.2 mg/dL (8.5-10.1); Carbon Dioxide 25 mmol/L (20-30); Chloride 109 mmol/L (98-107); Glucose 72 mg/dL (74-106); Sodium 140 mmol/L (136-145)
[2023-07-17 11:23] LABS: Bilirubin, Total 0.2 mg/dL (0.2-1.0)
[2023-07-17 11:28] LABS: Alanine Aminotransferase < 9 U/L (7-40)
[2023-07-17 13:00] VITALS: BP 101/62; PULSE 69; RESP 18; TEMP 98.6; O2SAT 97
[2023-07-17 13:24] LABS: Magnesium 1.8 mg/dL (1.6-2.6)
[2023-07-17] MEDS: MIDODRINE HCL 10 MG TAB PO SCH (18:04)
[2023-07-17 20:00] VITALS: BP 98/58; PULSE 71; RESP 18; TEMP 98.3; O2SAT 96
[2023-07-17 22:00] VITALS: BP 98/58; PULSE 71; RESP 18; TEMP 98.3; O2SAT 96
[2023-07-17 23:10] LABS: Urine Bacteria FEW /hpf (None Seen); Urine Blood 3+ /uL (Negative); Urine Clarity HAZY (Clear); Urine Color Colorless (Yellow); Urine Protein, UAD Negative (Negative); Urine Urobilinogen Normal (Negative); Urine WBC 77 /hpf (0 - 5)
[2023-07-17 23:23] LABS: Protein, Urine 16.7 mg/dL (0.0-11.9)
[2023-07-17 23:24] LABS: Amphetamine Screen, Urine Neg (NEGATIVE); Barbiturate Scree,Urine Neg (NEGATIVE); Benzodiazephine Screen, Urine Neg (NEGATIVE); Cocaine Screen, Urine Neg (NEGATIVE); Opiate Scree,Urine Pos (NEGATIVE); Phencyclidine Screen, Urine Neg (NEGATIVE)
[2023-07-17 23:25] LABS: Cannabinoid Screen, Urine Neg (NEGATIVE); Creatinine, Urine 59.04 mg/dL (30.0-125.0); Urine Protein/Creatinine Ratio 0.28
[2023-07-18] VITALS (7 sets, daily range): BP systolic 95–134; BP diastolic 49–106; PULSE 43–71; RESP 17–20; TEMP 97.8–98.5; O2SAT 96–98
[2023-07-18] MEDS: HYDROcodone-ACET 5/325MG TAB PO PRN ×2 (03:12→09:40)
[2023-07-18] MEDS: SODIUM CHLORIDE 0.9% 1,000 ML IV SCH ×2 (03:16→10:00)
[2023-07-18] MEDS: MIDODRINE HCL 10 MG TAB PO SCH ×3 (06:55→17:07)
[2023-07-18] MEDS: PANTOPRAZOLE 40 MG TAB PO SCH (10:03)
[2023-07-18 10:17] LABS: % Iron Saturation 5.9 % (15-50)
[2023-07-18] MEDS ORDERED: hydrOXYzine 25 MG TAB or CAP PO PRN (10:30)
[2023-07-18] MEDS ORDERED: ERGOCALCIFEROL 50,000 UNIT(1.25MG) CAP PO SCH (12:15)
[2023-07-18] MEDS: cefTRIAXone 1GM/50ML D5W 50 ML IV SCH (12:23)
[2023-07-18] MEDS: APIXABAN 5 MG TAB PO SCH ×2 (12:24→21:41)
[2023-07-18] MEDS: TEMAZEPAM 15 MG CAP PO PRN (21:41)
[2023-07-19 05:00] VITALS: BP 98/51; PULSE 56; RESP 20; TEMP 97.4; O2SAT 96
[2023-07-19] MEDS: MIDODRINE HCL 10 MG TAB PO SCH ×4 (06:49→17:15)
[2023-07-19 07:30] VITALS: PULSE 71
[2023-07-19 09:00] VITALS: BP 109/60; PULSE 48; RESP 19; TEMP 97.9; O2SAT 97
[2023-07-19] MEDS: cefTRIAXone 1GM/50ML D5W 50 ML IV SCH (09:00)
[2023-07-19] MEDS: PANTOPRAZOLE 40 MG TAB PO SCH (10:29)
[2023-07-19] MEDS: APIXABAN 5 MG TAB PO SCH (10:29)
[2023-07-19] MEDS ORDERED: FER325T PO (10:58)
[2023-07-19] MEDS ORDERED: POLY335015 PO (10:58)
[2023-07-19] MEDS ORDERED: CIPR-173 PO (10:58)
[2023-07-19] MEDS ORDERED: ASCO500T11 PO (10:58)
[2023-07-19] MEDS ORDERED: MID10T PO (10:58)
[2023-07-19] MEDS ORDERED: ERGO1CAP23 PO (10:58)
[2023-07-19 13:15] VITALS: BP 106/91; PULSE 80; RESP 18; TEMP 98.1; O2SAT 99
[2023-07-19 16:17] VITALS: BP 106/51; PULSE 80; TEMP 36.7; O2SAT 99
[2023-07-19] MEDS: HYDROcodone-ACET 5/325MG TAB PO PRN (17:11)
[2023-07-19 17:23] VITALS: BP 109/57; PULSE 68; RESP 17; TEMP 98.3; O2SAT 100
== END 2023-07-19 17:14 | disposition home health service (06) | DRG 663 ==
LOC: EDBD 11:06 → ER 11:06 → OVERFLOW 17:08 → CENTRAL 22:36 → TELE-CENTR 07-18 08:41
PROVIDERS: ADMIT Nurse Practitioner; ATTEND Nurse Practitioner
DX: D50.9 Iron deficiency anemia, unspecified (principal); L89.153 Pressure ulcer of sacral region, stage 3; I95.9 Hypotension, unspecified; G82.20 Paraplegia, unspecified; K21.9 Gastro-esophageal reflux disease without esophagitis; M19.90 Unspecified osteoarthritis, unspecified site; E66.01 Morbid (severe) obesity due to excess calories; I89.0 Lymphedema, not elsewhere classified; E20.9 Hypoparathyroidism, unspecified; E55.9 Vitamin D deficiency, unspecified; I10 Essential (primary) hypertension; N30.00 Acute cystitis without hematuria; Z74.01 Bed confinement status; Z88.1 Allergy status to other antibiotic agents; Z79.899 Other long term (current) drug therapy; Z68.32 Body mass index [BMI] 32.0-32.9, adult; Z79.01 Long term (current) use of anticoagulants; Z85.528 Personal history of other malignant neoplasm of kidney; Z86.718 Personal history of other venous thrombosis and embolism; Z90.49 Acquired absence of other specified parts of digestive tract; Z88.5 Allergy status to narcotic agent; Z88.8 Allergy status to other drugs, medicaments and biological substances; Z80.51 Family history of malignant neoplasm of kidney; Z90.710 Acquired absence of both cervix and uterus
CPT/HCPCS: 36415; 71045; 72128; 72131; 80053; 80307; 81001; 82306; 82533; 82570; 82607; 83540; 83550; 83605; 83735; 83880; 83970; 84100; 84156; 84300; 84439; 84443; 84484; 85025; 86850; 86900; 86901; 87040; 93005; 93306; 93970; G0378; J0696